=== PATIENT | male | born 1950 | race Caucasian/White ===

== ENCOUNTER 2021-06-21 01:22 | Emergency (ER) | payer OTHER ==
[2021-06-21 01:56] LABS: BASOPHIL 1.2 % (0-2); EOSINOPHIL 4.4 % (0-7); HGB 12.8 g/dl (13.2-18.0); MCH 21.7 pg (25.0-31.0); MCHC 30.5 g/dL (32.0-36.0); MCV 71.2 fL (78.0-100.0); MONOCYTE 9.8 % (0-12); MPV 9.6 fL (6.0-9.5); NEUTROPHIL 65.4 % (41-80); NRBC 0; PLT 273 K/uL (150-400); RDW 20.4 % (11.5-14.0); WBC 6.5 K/uL (4.0-10.5)
[2021-06-21 02:11] LABS: ALBUMIN 3.8 g/dL (3.4-5.0); BILIRUBIN - TOTAL 0.2 mg/dL (0.2-1.0); BUN/CREAT RATIO (CALC) 25.5 RATIO; CREATININE 0.98 mg/dL (0.67-1.17); GLOBULIN (CALCULATION) 3.5 g/dL; POTASSIUM 3.7 mmol/L (3.5-5.1); TOTAL PROTEIN 7.3 g/dL (6.4-8.2)
[2021-06-21 02:56] LABS: BILIRUBIN NEGATIVE (NEGATIVE); BLOOD 2+ Ery/uL (NEGATIVE); CLARITY CLEAR (CLEAR); COLOR YELLOW (YELLOW); GLUCOSE (U) NORMAL (NORMAL); LEUKOCYTES NEGATIVE Leu/uL (NEGATIVE); NITRITE NEGATIVE (NEGATIVE); PROTEIN NEGATIVE (NEGATIVE); UROBILINOGEN 0.2 mg/dL (0.2-1.0)
[2021-06-21 03:03] LABS: BACTERIA TRACE
[2021-06-21] MEDS ORDERED: PERCOCET 5-3251 EACH PO (03:32)
== END 2021-06-21 03:20 | disposition home or self-care (01) ==
LOC: FER 01:22
PROVIDERS: Internal Medicine
DX: N13.2 Hydronephrosis with renal and ureteral calculous obstruction (principal); I10 Essential (primary) hypertension
CPT/HCPCS: 36415; 80053; 81001; 83690; 84145; 84484; 85025; 93005